=== PATIENT | female | born 1975 | race Caucasian/White ===

== ENCOUNTER → 2018-12-01 | Outpatient (CLI) | payer OTHER | LOC: FIMAGING 10:25 | PROVIDERS: ATTEND Family Medicine | DX: Z12.31 Encounter for screening mammogram for malignant neoplasm of breast (principal) ==

== ENCOUNTER → 2018-12-31 | Outpatient (CLI) | payer OTHER | LOC: FIMAGING 13:07 ==

== ENCOUNTER 2019-01-15 18:13 | Emergency (ER) | payer OTHER | END 2019-01-15 22:06 | disposition home or self-care (01) ==